=== PATIENT | male | born 1955 | race Caucasian/White ===

== ENCOUNTER 2024-09-08 13:38 | Inpatient (IN) | payer MEDICARE, OTHER ==
[~2024-09-08] VITALS: Ht 175.3 cm; Wt 120.2 kg
[2024-09-08 14:44] LABS: BASOPHILS # (AUTO) 0.1 K/uL (0.0-0.2); BASOPHILS % (AUTO) 0.7 % (0.0-2.0); EOSINOPHILS # (AUTO) 0.1 K/uL (0.0-0.7); EOSINOPHILS % (AUTO) 1.6 % (0.0-6.0); HEMATOCRIT 43 % (39-51); HEMOGLOBIN 13.9 g/dL (13.5-17.5); LYMPHOCYTES # (AUTO) 1.5 K/uL (0.8-4.8); LYMPHOCYTES % (AUTO) 15.9 % (20.0-44.0); MEAN CORPUSCULAR HEMOGLOBIN 26 PG (26.0-33.0); MEAN CORPUSCULAR HGB CONC 32 g/dl (31.0-36.0); MEAN CORPUSCULAR VOLUME 82 fL (80-96); MONOCYTES # (AUTO) 0.6 K/uL (0.1-1.30); NEUTROPHILS # (AUTO) 7.1 K/uL (1.8-8.9); NEUTROPHILS % (AUTO) 75.8 % (43.0-81.0); PLATELET COUNT (AUTO) 296 K/uL (150-450); RED BLOOD CELL COUNT(AUTO) 5.27 MIL/uL (4.5-6.0); RED CELL DISTRIBUTION WIDTH 17.6 % (11.5-15.0); WHITE BLOOD COUNT (AUTO) 9.3 K/uL (4.3-11.0)
[2024-09-08 14:57] LABS: CALCIUM, SERUM 9.2 mg/dL (8.5-10.1); CARBON DIOXIDE 26 mmol/L (21-32); CHLORIDE 98 mmol/L (98-107); GLUCOSE 270 mg/dL (74-106); POTASSIUM 4.4 mmol/L (3.5-5.1); SODIUM SERUM 132 mmol/L (136-145); UREA NITROGEN, BLOOD 14 mg/dL (7-18)
[2024-09-08 14:59] LABS: AMPHETAMINE, URINE NEGATIVE (NEGATIVE); APPEARANCE,URINE CLEAR (CLEAR); BARBITURATE, URINE NEGATIVE (NEGATIVE); BENZODIAZEPINE, URINE NEGATIVE (NEGATIVE); BILIRUBIN,URINE NEGATIVE (NEGATIVE); BLOOD, URINE NEGATIVE Ery/uL (NEGATIVE); CANNABINOID, URINE NEGATIVE (NEGATIVE); COCCAINE, URINE NEGATIVE (NEGATIVE); COLOR,URINE YELLOW (YELLOW); KETONES,URINE NEGATIVE (NEGATIVE); LEUKOCYTE ESTERASE ,URINE NEGATIVE (NEGATIVE); NITRITE, URINE NEGATIVE (NEGATIVE); OPIATE, URINE NEGATIVE (NEGATIVE); PH,URINE 7.5 (5.0-8.0); PHENCYCLIDINE SCREEN,URINE NEGATIVE (NEGATIVE); PROTEIN,URINE NEGATIVE (NEGATIVE); UGLUCOSE 3+ mg/dL (NEGATIVE); UROBILINOGEN,URINE 0.2 EU/dL (0.2)
[2024-09-08 15:02] LABS: ALANINE AMINOTRANSFERASE 25 U/L (12-78); ALBUMIN 3.3 g/dL (3.4-5.0); ALKALINE PHOSPHATASE 90 U/L (46-116); ASPARTATE AMINOTRANSFERASE 13 U/L (15-37); BILIRUBIN,DIRECT 0.1 mg/dL (0.0-0.2); BILIRUBIN,TOTAL 0.3 mg/dL (0.2-1.0); TOTAL PROTEIN, SERUM 7.1 g/dL (6.4-8.2)
[2024-09-08 15:07] LABS: ADD URINE CULTURE NO; BACTERIA,URINE Rare /HPF (None Seen); CALCIUM CARBONATE CRYSTALS,UR Moderate /HPF (None Seen); RBC,URINE 0-2 /HPF (0-2); SQUAMOUS EPITHELIAL CELL,UR None Seen /HPF (None Seen); WBC,URINE 0-2 /HPF (0-3)
[2024-09-08 15:10] LABS: ACETAMINOPHEN <10 ug/ml (10-30); ALCOHOL, BLOOD < 10 mg/dL (0-10); SALICYLATE 1.2 mg/dL (2.8-20.0)
[2024-09-08] MEDS ORDERED: AMLO5TAB4 PO (15:29)
[2024-09-08] MEDS ORDERED: DICL100G34 TP (15:29)
[2024-09-08] MEDS ORDERED: BISA10SU11 RC (15:29)
[2024-09-08] MEDS ORDERED: BACL10TA PO (15:29)
[2024-09-08] MEDS ORDERED: CLON0.1T PO (15:29)
[2024-09-08] MEDS ORDERED: POLY17PO4 PO (15:30)
[2024-09-08] MEDS ORDERED: ACET-868 PO (15:30)
[2024-09-08] MEDS ORDERED: SENN8.6T19 PO (15:30)
[2024-09-08] MEDS ORDERED: MULT-213 PO (15:30)
[2024-09-08] MEDS ORDERED: ONDA4TAB5 PO (15:30)
[2024-09-08] MEDS ORDERED: CYAN50TA2 PO (15:30)
[2024-09-08] MEDS ORDERED: MELA3TAB41 PO (15:30)
[2024-09-08] MEDS ORDERED: GABA300C PO (15:30)
[2024-09-08] MEDS ORDERED: NA P133E RC (15:30)
[2024-09-08] MEDS ORDERED: MAGN400O6 PO (15:30)
[2024-09-08] MEDS ORDERED: INSU100V39 SQ (15:30)
[2024-09-08] MEDS ORDERED: ASCO-352 PO (15:30)
[2024-09-08] MEDS ORDERED: MORP15TA PO (15:30)
[2024-09-08] MEDS ORDERED: [UNRECOGNIZED DRUG - OTHER] SQ (15:30)
[2024-09-08] MEDS ORDERED: DEXTROSE 50%-WATER 50 ML DISP.SYRIN IV PRN (18:30)
[2024-09-08] MEDS ORDERED: MORPHINE SULFATE IR 15 MG TABLET PO PRN (18:30)
[2024-09-08] MEDS ORDERED: NA PHOS,M-B/NA PHOS,DI-BA 1 EA ENEMA RC PRN (18:30)
[2024-09-08] MEDS ORDERED: BISACODYL SUPP (10 MG) 10 MG/SUPP.RECT SUPP.RECT RC PRN (18:30)
[2024-09-08] MEDS: BLOOD SUGAR DIAGNOSTIC 1 EACH STRIP IN SCH (22:00)
[2024-09-08] MEDS ORDERED: MAG HYDROX/AL HYDROX/SIMETH 30 ML UDC PO PRN (23:30)
[2024-09-08] MEDS ORDERED: ZOLPIDEM TARTRATE 5 MG TABLET PO PRN (23:30)
[2024-09-09] MEDS ORDERED: Z GUARD REMEDY 4 OZ OINT TP PRN
[2024-09-09 00:50] VITALS: BP 135/78; TEMP 98; O2SAT 98
[2024-09-09] MEDS: BLOOD SUGAR DIAGNOSTIC 1 EACH STRIP IN ONE (01:06)
[2024-09-09 08:00] VITALS: BP 168/78; TEMP 97.7; O2SAT 98
[2024-09-09] MEDS: INSULIN REGULAR, HUMAN 100 UNIT/ML 3 ML VIAL SQ PRN (08:17)
[2024-09-09] MEDS: MULTIVIT W/MINERALS 1 TAB TABLET PO SCH (08:32)
[2024-09-09] MEDS: AMLODIPINE BESYLATE 5 MG TABLET PO SCH (08:32)
[2024-09-09] MEDS: ASCORBIC ACID 500 MG TABLET PO SCH (08:32)
[2024-09-09] MEDS: BACLOFEN (10 MG) 10 MG TABLET PO PRN (08:33)
[2024-09-09] MEDS: GABAPENTIN 300 MG CAPSULE PO SCH (08:38)
[2024-09-09] MEDS: CYANOCOBALAMIN 100 MCG TABLET PO SCH (09:04)
[2024-09-09] MEDS ORDERED: LORAZEPAM 1 MG TABLET PO PRN (13:00)
[2024-09-09 16:00] VITALS: BP 176/90; TEMP 98; O2SAT 95
[2024-09-09] MEDS: risperiDONE 0.25 MG TABLET PO SCH (16:55)
[2024-09-10 08:01] LABS: BASOPHILS % (AUTO) 0.6 % (0.0-2.0); EOSINOPHILS # (AUTO) 0.1 K/uL (0.0-0.7); EOSINOPHILS % (AUTO) 1.6 % (0.0-6.0); HEMATOCRIT 42 % (39-51); HEMOGLOBIN 13.9 g/dL (13.5-17.5); LYMPHOCYTES # (AUTO) 1.4 K/uL (0.8-4.8); LYMPHOCYTES % (AUTO) 18.3 % (20.0-44.0); MEAN CORPUSCULAR HEMOGLOBIN 27 PG (26.0-33.0); MEAN CORPUSCULAR HGB CONC 33 g/dl (31.0-36.0); MEAN CORPUSCULAR VOLUME 81 fL (80-96); MONOCYTES # (AUTO) 0.5 K/uL (0.1-1.30); MONOCYTES % (AUTO) 6.5 % (2.0-12.0); NEUTROPHILS # (AUTO) 5.5 K/uL (1.8-8.9); PLATELET COUNT (AUTO) 310 K/uL (150-450); RED CELL DISTRIBUTION WIDTH 17.9 % (11.5-15.0); WHITE BLOOD COUNT (AUTO) 7.5 K/uL (4.3-11.0)
[2024-09-10 08:03] LABS: CALCIUM, SERUM 9.3 mg/dL (8.5-10.1); CREATININE 0.8 mg/dL (0.6-1.3); POTASSIUM 4.5 mmol/L (3.5-5.1)
[2024-09-10] MEDS: DICLOFENAC TOPICAL 100 GM TUBE TP PRN (12:35)
[2024-09-10] MEDS: OLANZAPINE 10 MG VIAL IM STA (15:19)
[2024-09-10] MEDS: risperiDONE 0.25 MG TABLET PO SCH (17:00)
[2024-09-11 08:00] VITALS: BP 157/78; TEMP 98.7; O2SAT 98
[2024-09-11 15:50] VITALS: BP 162/81; TEMP 98.7; O2SAT 97
[2024-09-11] MEDS: GABAPENTIN 100 MG CAPSULE PO SCH (17:00)
[2024-09-11 20:00] VITALS: BP 154/69; TEMP 97.9; O2SAT 97
[2024-09-11] MEDS: DIVALPROEX SODIUM 250 MG TABLET.DR PO SCH (21:18)
[2024-09-12 08:00] VITALS: BP 172/72; TEMP 97.8; O2SAT 97
[2024-09-12 16:00] VITALS: BP 163/85; TEMP 97.5; O2SAT 96
[2024-09-12 20:09] VITALS: BP_SYST 144; BP_SYST 161; BP_DIAS 69; BP_DIAS 78; TEMP 98.8; O2SAT 96
[2024-09-13] MEDS: SENNOSIDES 8.6 MG TABLET PO PRN (04:23)
[2024-09-13 08:00] VITALS: BP 169/73; TEMP 98.7; O2SAT 97
[2024-09-13] MEDS: INSULIN REGULAR, HUMAN 100 UNIT/ML 3 ML VIAL SQ PRN (12:09)
[2024-09-13] MEDS: ONDANSETRON 4 MG TAB.RAPDIS PO PRN (13:13)
[2024-09-13 16:24] VITALS: BP 162/78; TEMP 98.7; O2SAT 98
[2024-09-13 20:00] VITALS: BP 158/91; TEMP 98.4; O2SAT 98
[2024-09-13] MEDS: risperiDONE 0.25 MG TABLET PO SCH (21:24)
[2024-09-13] MEDS: ZOLPIDEM TARTRATE 5 MG TABLET PO PRN (21:56)
[2024-09-14 08:00] VITALS: BP 164/89; TEMP 98; O2SAT 100
[2024-09-14 16:00] VITALS: BP 172/83; TEMP 98; O2SAT 95
[2024-09-14 20:00] VITALS: BP 176/88; TEMP 98.1; O2SAT 98
[2024-09-14 20:45] VITALS: BP 176/88; TEMP 98.1; O2SAT 98
[2024-09-14] MEDS: CLONIDINE HCL 0.1 MG TABLET PO PRN (20:55)
[2024-09-15] MEDS: ACETAMINOPHEN 325 MG TABLET PO PRN (07:03)
[2024-09-15 08:00] VITALS: BP 160/89; TEMP 97.9; O2SAT 94
[2024-09-15 16:00] VITALS: BP 155/74; TEMP 98; O2SAT 98
[2024-09-15 19:57] VITALS: BP 168/82; TEMP 98; O2SAT 96
[2024-09-15] MEDS: DIVALPROEX SODIUM 250 MG TABLET.DR PO SCH (21:53)
[2024-09-16 08:00] VITALS: BP 123/86; TEMP 97.9; O2SAT 99
[2024-09-16 16:00] VITALS: BP 120/80; TEMP 98.1; O2SAT 98
[2024-09-16 20:15] VITALS: BP 156/82; TEMP 98.2; O2SAT 96
[2024-09-16] MEDS: risperiDONE 1 MG TABLET PO SCH (21:46)
[2024-09-17] MEDS: MAGNESIUM HYDROXIDE 30 ML UDC PO PRN (01:04)
[2024-09-17] MEDS: risperiDONE 1 MG TABLET PO SCH (09:08)
[2024-09-17 16:03] VITALS: BP 161/74; TEMP 97.9; O2SAT 98
[2024-09-17 22:54] VITALS: BP 149/77; TEMP 97.8; O2SAT 97
[2024-09-18 08:00] VITALS: BP 166/90; TEMP 97.8; O2SAT 99
[2024-09-18 20:00] VITALS: BP 144/77; TEMP 98; O2SAT 96
[2024-09-18 20:10] VITALS: BP 144/77; TEMP 98; O2SAT 96
[2024-09-18] MEDS: risperiDONE 1 MG TABLET PO SCH (21:30)
[2024-09-19 08:00] VITALS: BP 159/79; TEMP 97.6; O2SAT 98
[2024-09-19] MEDS: POLYETHYLENE GLYCOL 3350 17 GM POWD.PACK PO PRN (08:41)
[2024-09-19] MEDS: DIVALPROEX SODIUM 250 MG TABLET.DR PO SCH (14:00)
[2024-09-19 16:00] VITALS: BP 117/77; TEMP 97.7; O2SAT 97
[2024-09-19 20:00] VITALS: BP 145/75; TEMP 97.9; O2SAT 97
[2024-09-19] MEDS: DIVALPROEX SODIUM 125 MG TABLET.DR PO SCH (21:35)
[2024-09-20 08:00] VITALS: BP 168/87; TEMP 98.7; O2SAT 97
[2024-09-20 16:00] VITALS: BP 157/86; TEMP 98.1; O2SAT 98
[2024-09-20 20:00] VITALS: BP 166/81; TEMP 98.1; O2SAT 98
[2024-09-20 20:53] VITALS: BP 152/80; TEMP 98.4; O2SAT 97
[2024-09-21 08:00] VITALS: BP 136/89; TEMP 98; O2SAT 100
[2024-09-21 08:54] VITALS: BP 136/89
== END 2024-09-21 13:35 | DRG 885 ==
LOC: ER 13:40 → GPS 20:57
PROVIDERS: ADMIT Psychiatry & Neurology Psychiatry; ATTEND Nurse Practitioner Acute Care
DX: F31.2 Bipolar disorder, current episode manic severe with psychotic features (principal); E11.65 Type 2 diabetes mellitus with hyperglycemia; F03.93 Unspecified dementia, unspecified severity, with mood disturbance; F03.92 Unspecified dementia, unspecified severity, with psychotic disturbance; F03.918 Unspecified dementia, unspecified severity, with other behavioral disturbance; E44.1 Mild protein-calorie malnutrition; F39 Unspecified mood [affective] disorder; G89.4 Chronic pain syndrome; M79.7 Fibromyalgia; E11.21 Type 2 diabetes mellitus with diabetic nephropathy; M54.32 Sciatica, left side; M54.31 Sciatica, right side; M17.0 Bilateral primary osteoarthritis of knee; M19.072 Primary osteoarthritis, left ankle and foot; M19.071 Primary osteoarthritis, right ankle and foot; Z74.01 Bed confinement status; F29 Unspecified psychosis not due to a substance or known physiological condition; I10 Essential (primary) hypertension; E66.9 Obesity, unspecified; Z68.39 Body mass index [BMI] 39.0-39.9, adult; E88.09 Other disorders of plasma-protein metabolism, not elsewhere classified; Z79.899 Other long term (current) drug therapy; Z91.199 Patient's noncompliance with other medical treatment and regimen due to unspecified reason
CPT/HCPCS: 36415; 71045-TC; 80048-TC; 80061-TC; 80076-TC; 80164-TC; 81001; 82962-TC; 83880; 84484-TC; 85025-TC; 87081-TC; 97110-TC; 97116-TC; 97530-TC; G0480; J1815; J3490; Q0162